=== PATIENT | male | born 1945 | race Caucasian/White ===

== ENCOUNTER 2017-11-01 13:31 | Emergency (ER) | payer MEDICARE ==
[~2017-11-01] VITALS: Ht 167.6 cm; Wt 80.0 kg
[2017-11-01 13:34] VITALS: BP 117/99; PULSE 69; RESP 14; TEMP 97.8; O2SAT 96
--- NOTE | 2017-11-01 14:52 | PD ---
HPI Chief Complaint: GI Complaint Time Seen by Provider: 14:00 Travel History International Travel<30 days: No Contact w/Intl Traveler<30days: No Traveled to known affect area: No History of Present Illness HPI This 72-year-old man presents emergency room with intermittent loose stools for the past several days, especially with constipation as well, and dark colored stools. He takes a full dose aspirin daily. He does not take any other blood thinners. No history of GI bleed in the past. He had a colonoscopy done last year prior to having a removal of a renal tumor. He otherwise had been feeling well and healthy. He is visiting from out of town, is due to go back home on Saturday, in 2 days. Patient has had right lower quadrant pain for the past year and a half, it was his pain that led to him getting a CAT scan where they found a renal tumor. Unclear if the renal tumor was related to the pain but he said the pain persistently since then as well. History Past Medical History Narrative Medical History of right-sided renal tumor CAD, history of CABG and hypertension on hyperlipidemia Social History Alcohol Use: No Tobacco Use: No Allergies-Medications (Allergen,Severity, Reaction): Coded Allergies: No Known Allergies (Unverified , 11/01/17) Review of Systems Except as stated in HPI: all other systems reviewed are Neg Physical Exam Narrative GENERAL: Well-appearing 72-year-old man, no acute distress. SKIN: Focused skin assessment warm/dry. HEAD: Atraumatic. Normocephalic. EYES: Pupils equal and round. No scleral icterus. No injection or drainage. ENT: No nasal bleeding or discharge. Mucous membranes pink and moist. NECK: Trachea midline. No JVD. CARDIOVASCULAR: Regular rate and rhythm. No murmur appreciated. RESPIRATORY: No accessory muscle use. Clear to auscultation. Breath sounds equal bilaterally. GASTROINTESTINAL: Abdomen soft, non-tender, nondistended. Hepatic and splenic margins not palpable. MUSCULOSKELETAL: No obvious deformities. No clubbing. No cyanosis. No edema. NEUROLOGICAL: Awake and alert. No obvious cranial nerve deficits. Motor grossly within normal limits. Normal speech. PSYCHIATRIC: Appropriate mood and affect; insight and judgment normal. Data Data Last Documented VS Vital Signs Date Time Temp Pulse Resp B/P (MAP) Pulse Ox O2 Delivery O2 Flow Rate FiO2 11/01/17 14:27 18 11/01/17 13:34 97.8 69 117/99 (105) 96 Orders Orders Complete Blood Count With Diff (11/01/17 14:40) Labs Laboratory Tests Test 11/01/17 14:44 White Blood Count 8.4 TH/MM3 Red Blood Count 5.51 MIL/MM3 Hemoglobin 17.3 GM/DL Hematocrit 49.4 % Mean Corpuscular Volume 89.6 FL Mean Corpuscular Hemoglobin 31.4 PG Mean Corpuscular Hemoglobin Concent 35.0 % Red Cell Distribution Width 14.0 % Platelet Count 216 TH/MM3 Mean Platelet Volume 8.5 FL Neutrophils (%) (Auto) 55.0 % Lymphocytes (%) (Auto) 27.2 % Monocytes (%) (Auto) 15.4 % Eosinophils (%) (Auto) 1.7 % Basophils (%) (Auto) 0.7 % Neutrophils # (Auto) 4.6 TH/MM3 Lymphocytes # (Auto) 2.3 TH/MM3 Monocytes # (Auto) 1.3 TH/MM3 Eosinophils # (Auto) 0.1 TH/MM3 Basophils # (Auto) 0.1 TH/MM3 CBC Comment DIFF FINAL Differential Comment MDM Medical Decision Making Medical Screen Exam Complete: Yes Emergency Medical Condition: Yes Interpretation(s) H&H without evidence of anemia. Differential Diagnosis GI bleed, malignancy, constipation, colitis, other Narrative Course Medical decision making INITIAL: 72-year-old man with loose dark colored stools. He had some constipation initially and still feels a little bit constipated. The little bit of thin black stools around that. She is otherwise well. Ongoing right abdominal pain, but never some time. 100 follow-up regarding the right-sided abdominal pain. His guaiac is negative despite being dark in color, this is likely from the Pepto-Bismol he is taken earlier in the week. Will check a CBC , but recommend outpatient follow-up. Diagnosis Primary Impression: Constipation Additional Impression: Black stool Additional Instructions: Continue MiraLAX as needed for constipation. You can take one bottle of magnesium citrate if needed for worsening constipation symptoms. Follow-up with her primary doctor in the next 2-4 days. Return to the emergency department for any worsening bleeding, abdominal pain, or any other new or worsening symptoms. Med/Other Pt SpecificInfo: No Change to Meds Disposition: 01 DISCHARGE HOME Condition: Stable Colt Aponte MD Nov 01, 2017 14:52
[2017-11-01 15:01] LABS: AUTOMATED NEUTROPHIL # 4.6 TH/MM3 (1.8-7.7); BASOPHIL # 0.1 TH/MM3 (0-0.2); BASOPHIL % 0.7 % (0.0-2.0); EOSINOPHIL # 0.1 TH/MM3 (0-0.4); EOSINOPHIL % 1.7 % (0.0-4.0); HEMATOCRIT 49.4 % (39.0-51.0); HEMOGLOBIN 17.3 GM/DL (13.0-17.0); LYMPH % 27.2 % (9.0-44.0); LYMPHOCYTE # 2.3 TH/MM3 (1.0-4.8); MEAN CELL VOLUME 89.6 FL (80.0-100.0); MEAN CORPUSCULAR HEMOGLOBIN 31.4 PG (27.0-34.0); MEAN PLATELET VOLUME 8.5 FL (7.0-11.0); MONO % 15.4 % (0.0-8.0); MONOCYTE # 1.3 TH/MM3 (0-0.9); PLATELET COUNT 216 TH/MM3 (150-450); RED BLOOD COUNT 5.51 MIL/MM3 (4.50-5.90); WHITE BLOOD COUNT 8.4 TH/MM3 (4.0-11.0)
== END 2017-11-01 15:34 | disposition home or self-care (01) ==
LOC: NEPD 13:31
DX: K59.00 Constipation, unspecified (principal); R19.5 Other fecal abnormalities; I25.10 Atherosclerotic heart disease of native coronary artery without angina pectoris; I10 Essential (primary) hypertension; E78.5 Hyperlipidemia, unspecified; Z79.82 Long term (current) use of aspirin; Z95.1 Presence of aortocoronary bypass graft
CPT/HCPCS: 85025; 99283